=== PATIENT | male | born 1935 | race Native Hawaiian/Other Pacific Islander ===

== ENCOUNTER 2017-03-07 06:53 | Observation (INO) | payer MEDICARE, OTHER ==
[2017-03-07 07:18] LABS: CHLORIDE 93 mmol/L (98-107); SODIUM 128 mmol/L (132-148)
[2017-03-07 07:20] LABS: GFR AFRICAN-AMERICAN > 60
[2017-03-07 07:21] LABS: ALB/GLOB RATIO 1.3 (1.0-2.1); ALKALINE PHOSPHATASE 63 U/L (38-126); ALT/SGPT 21 U/L (21-72); AST/SGOT 65 U/L (17-59); BASO # 0.1 K/uL (0.0-0.2); BASO % 0.7 % (0.0-2.0); BILIRUBIN,TOTAL 1.3 mg/dL (0.2-1.3); BLOOD UREA NITROGEN 14 mg/dL (9-20); CALCIUM 8.3 mg/dl (8.6-10.4); CARBON DIOXIDE 26 mmol/L (22-30); EOS # 0.5 K/uL (0.0-0.7); EOS % 4.3 % (0.0-4.0); GLUCOSE,RANDOM 113 mg/dL (75-110); LYMPH % 9.4 % (20.0-40.0); MEAN CORPUSCULAR HEMOGLOBIN 24.5 pg (27.0-31.0); MEAN CORPUSCULAR HGB CONC 32.3 g/dL (33.0-37.0); MEAN PLATELET VOLUME 9.7 fL (7.2-11.7); PLATELET COUNT 148 K/uL (130-400); RED CELL DISTRIBUTION WIDTH 17.2 % (11.5-14.5); TOTAL PROTEIN 7.5 g/dL (6.3-8.3); WHITE BLOOD COUNT 10.9 K/uL (4.8-10.8)
[2017-03-07 07:23] LABS: MEAN CELL VOLUME 75.7 fL (80.0-94.0)
--- NOTE | 2017-03-07 07:36 | C.PDOC ---
History Of Present Illness Patient BIBA for AMS, slurred speech noticed this morning by family around 5: 45am. Patient had fallen on the floor ("slid to the floor"), last seen at normal baseline at approx 9pm. Patient has h/o CAD, HTN, DM. Time Seen by Provider: 03/07/17 07:10 Chief Complaint (Nursing): Weakness/Neurological Deficit History Per: EMS, Family History/Exam Limitations: clinical condition, language barrier Current Symptoms Are (Timing): Still Present Seizure Or Post-ictal Symptoms: None Severity: Moderate Past Medical History Reviewed: Historical Data, Nursing Documentation, Vital Signs Vital Signs: Last Vital Signs Temp 97.9 F 03/08/17 16:30 Pulse 65 03/08/17 16:30 Resp 20 03/08/17 16:30 BP 128/66 03/08/17 16:30 Pulse Ox 97 03/12/17 13:18 - Medical History PMH: CAD, HTN Surgical History: Coronary Stent Family History: States: Other Other Family History: NONCONTRIBUTORY - Social History Hx Alcohol Use: No Hx Substance Use: No Review Of Systems Review Of Systems: ROS cannot be obtained secondary to pt's inabilty to answer questions. Physical Exam - Physical Exam Appears: Non-toxic, Other (restless, awake & alert) Skin: Normal Color, Warm, Dry Head: Atraumatic, Normacephalic Eye(s): bilateral: EOMI, Other (pinpoint pupils B/L) Oral Mucosa: Moist Neck: Normal, Normal ROM Cardiovascular: Rhythm Irregular Respiratory: Normal Breath Sounds, No Rales, No Rhonchi, No Wheezing Gastrointestinal/Abdominal: Normal Exam, Bowel Sounds, Soft, No Tenderness Extremity: Normal ROM, No Pedal Edema, No Calf Tenderness Neurological/Psych: Normal Cranial Nerves, Normal Motor (5/5 motor strength all ext), Normal Sensation, Normal Reflexes, Dysarthria, Other (awake, alert, confused but able to follow simple commands, slurred speech as per family) ED Course And Treatment - Laboratory Results Result Diagrams: 03/07/17 07:05 03/07/17 08:06 ECG: Interpreted By Me, Viewed By Me (NSR 67 bpm, left axis deviation, no acute ST/T wave changes) ECG Interpretation: No Acute Changes O2 Sat by Pulse Oximetry: 97 (RA) Pulse Ox Interpretation: Normal - Radiology CXR: Interpreted by Me, Viewed By Me CXR Interpretation: Yes: No Acute Disease. No: Infiltrates - CT Scan/US ct head Other Rad Studies (CT/US): Read By Radiologist, Radiology Report Reviewed CT/US Interpretation: [facility]. [facility]. Preliminary Radiology Report with Addendum Call: [phone]. assistance Online chat: [email or web address] Name: ABAD MAGALLANES Age: 81Years M Date: . Requesting Physician: DANA French : 1935. [facility] Procedure Ordered As Accession Number of Images. CT HEAD WO CT HEAD W O CODE STROKE [id number]. Provided Clinical History: CODE STROKE. Page 1 of 2. Addendum created by Larry Mantilla MD on 03/07/2017 7:25 AM Eastern Time ([place] & [place]). The above was read and discussed at approximately 7:25 AM EDT on03/07/2017 with the attending. physician , Dr. Malcolm. Initial Report created on 03/07/2017 7:22 AM Eastern Time ([place] & [place]). EXAM: CT Head Without Intravenous Contrast. CLINICAL HISTORY: 81 years old, male; Signs and symptoms; Altered mental status/memory loss; Additional info: Code. stroke. TECHNIQUE: Axial computed tomography images of the head/brain without intravenous contrast. This CT exam. was performed using one or more of the following dose reduction techniques: automated exposure. control, adjustment of the mA and/or kV according to patient size, and/or use of iterative. reconstruction technique. Coronal and sagittal reformatted images were created and reviewed. EXAM DATE/TIME: 03/07/2017 6:54 AM. COMPARISON: No relevant prior studies available. FINDINGS: Brain: The ventricles are enlarged on the basis of mild diffuse cerebral volume loss. - Extensive. hypodensity is seen in the periventricular cerebral white matter. This change is nonspecific but is. most likely secondary to chronic ischemia within microvascular distributions. There are no other intra. or extra-axial masses, lesions or collections. The coffey white matter distinction is maintained. ABAD MAGALLANES | Preliminary Radiology Report. FIELD AGENT (QA) DISCREPANCY? If there is a discrepancy between the preliminary and final interpretation, please notify [facility] via [email or web address]. If you do not have access to our QA portal, call our QA team at [phone]. CONFIDENTIALITY STATEMENT. This report is intended only for the use of the referring physician, and only in accordance with law, If you received this in error, call [phone]. Page 2 of 2. throughout the brain. There is no radiographic evidence of intracranial hemorrhage. Summary: no. radiographic evidence of acute intracranial pathology. Ventricles: See above. Bones/joints: Unremarkable. No acute fracture. Soft tissues: Unremarkable. Sinuses: Mucosal thickening right greater than left maxillary sinus. Mastoid air cells: Unremarkable as visualized. No mastoid effusion. IMPRESSION: No acute findings. Thank you for allowing us to participate in the care of your patient. Dictated and Authenticated by: Larry Mantilla MD. 03/07/2017 7:22 AM Eastern Time ([place] & [place]) Progress Note: Code stroke called on ED arrival. Blood work, EKG, CT head ordered and reviewed. Patient given IV Ns bolus, VT aspirin at CT head (-) for bleed. Reevaluation Time: 08:00 Reassessment Condition: Unchanged (Patient's physical exam unchanged, but he is in no acute distress at this time.) - Physician Consult Information Physician Contacted: Randal Magallanes Outcome Of Conversation: Spoke with PMD, agrees with telemetry admission. Would like Dr. Domonique Mohan for neurology, states patient has seen him in the past. As per Dr. Magallanes he has no prior h/o CVA/TIA, but does has h/o carotid stenosis. Critical Care Time - Critical Care Note Total Time (in mins): 35 Documented critical care: time excludes all time spent performing seperately billable procedures. NIHSS Stroke Scale - Date/Time Evaluation Performed Date Performed: 03/07/17 Time Performed: 07:05 - How Severe is the Stoke Level of Consciousness: 0=Alert LOC to Questions: 0=Both comments correct LOC to commands: 0=Obeys both correctly Best Gaze: 0=Normal Visual: 0=No visual loss Facial: 0=Normal Motor Arm - Left: 0=No drift Motor Arm - Right: 0=No drift Motor Leg - Left: 0=No drift Motor Leg - Right: 0=No drift Limb Ataxia: 0=Absent Sensory: 0=Normal Best Language: 0=No aphasia Dysarthia: 1=Mild to moderate slurring Extinction & Inattention (Neglect): 0=Normal, no object Score: 1 Severity Of Stroke: 1-4= Minor Stroke rTPA Inclusion/Exclusion - Refusal of Treatment Patient Refused Treatment: No - Inclusion Criteria for Altepase Patient is 18 years or Older: Yes The Clinical Diagnosis of Ischemic Stroke That is Causing a Potentially Disabling Neurological Deficit: Yes Time of Onset is Well Established to be Less Than 270 Minute Before Treatment Would Begin: No Risk/Benefit Discussed With Patient/Family Member Present: No Disposition - Disposition Disposition: HOSPITALIZED Disposition Time: 08:15 Condition: STABLE - Clinical Impression Clinical Impression: Acute CVA (cerebrovascular accident), Dysarthria, Altered mental status Decision To Admit - Pt Status Changed To: Hospital Disposition Of: Inpatient - Admit Certification Admit to Inpatient:: After my assessment, the patient will require hospitalization for at least two midnights. This is because of the severity of symptoms shown, intensity of services needed, and/or the medical risk in this patient being treated as an outpatient. - InPatient: Physician Admission Certification: I certify that this patient requires 2 or more midnights of care for the following reason:: see notes - . Bed Request Type: Telemetry Admitting Physician: Randal Magallanes Patient Diagnosis: Acute CVA (cerebrovascular accident), Dysarthria, Altered mental status
[2017-03-07 08:13] LABS: BASOPHIL 1 % (0-2); EOSINOPHIL 5 % (0-4); NEUTROPHIL 71 % (50-75); TOTAL CELLS COUNTED 100
[2017-03-07 08:17] LABS: CHLORIDE 93 mmol/L (98-107)
[2017-03-07 08:18] LABS: SODIUM 129 mmol/L (132-148)
[2017-03-07 08:20] LABS: ALB/GLOB RATIO 1.2 (1.0-2.1); BILIRUBIN,TOTAL 0.7 mg/dL (0.2-1.3); BLOOD UREA NITROGEN 14 mg/dL (9-20); CARBON DIOXIDE 27 mmol/L (22-30); CHOLESTEROL 137 mg/dL (0-199); GFR AFRICAN-AMERICAN > 60; TOTAL PROTEIN 6.9 g/dL (6.3-8.3)
[2017-03-07 08:21] LABS: ALKALINE PHOSPHATASE 73 U/L (38-126); ALT/SGPT 21 U/L (21-72); AST/SGOT 25 U/L (17-59); CALCIUM 8.3 mg/dl (8.6-10.4); GLUCOSE,RANDOM 119 mg/dL (75-110)
--- NOTE | 2017-03-07 08:33 | CT ---
PROCEDURE: CT HEAD WITHOUT CONTRAST. HISTORY: CODE STROKE COMPARISON: None available. TECHNIQUE: Axial computed tomography images were obtained through the head/brain without intravenous contrast. Radiation dose: Total exam DLP = 885 mGy-cm. This CT exam was performed using one or more of the following dose reduction techniques: Automated exposure control, adjustment of the mA and/or kV according to patient size, and/or use of iterative reconstruction technique. FINDINGS: HEMORRHAGE: No intracranial hemorrhage. BRAIN: Scattered focal lucencies in the subcortical and periventricular white matter suggestive for chronic microvascular ischemic change. Atrophy. Extensive hypodensity seen in the periventricular cerebral white matter. This change is nonspecific but is most likely secondary to chronic ischemia within microvascular distributions. VENTRICLES: Enlarged likely secondary to mild diffuse cerebral volume loss. CALVARIUM: Unremarkable. PARANASAL SINUSES: Mucosal thickening of the bilateral maxillary sinuses ; right greater than left. MASTOID AIR CELLS: Unremarkable as visualized. No inflammatory changes. OTHER FINDINGS: None. IMPRESSION: No acute intracranial abnormality. Atrophy. Prominent ventricles likely secondary to diffuse atrophy. Extensive hypodensity in the periventricular cerebral white matter, nonspecific, but possibly secondary to chronic ischemia within microvascular distributions. If focal neurologic deficit persists, consider MRI. Additional findings as above. These findings were preliminarily reported at 7:22 a.m. on 03/07/[address] Larry Mantilla from [facility] [employer].
[2017-03-07] MEDS ORDERED: Sodium Chloride 0.9% 1,000 ML IV ONE (09:21)
--- NOTE | 2017-03-07 10:16 | CON ---
DATE: 03/07/2017 REASON FOR CONSULTATION: Possible stroke. HISTORY OF PRESENT ILLNESS: The patient is a 81-year-old male brought by the family after noticed to have slurring of speech and change in mental status. The patient woke up this morning and as he was trying to get out of bed, he kind of stumbled and fell. He did not hit his head. Since that time, he has noticed to have slurring of speech and was very confused and restless. History is from the [facility] and the patient. REVIEW OF SYSTEMS: Denies any headache, dizziness, chest pain, shortness of breath, abdominal pain, constipation, diarrhea. Denies any hallucinations or rashes. PAST MEDICAL HISTORY: Includes hypertension, diabetes mellitus, coronary artery disease. MEDICATIONS: At home included Plavix, valsartan/hydrochlorothiazide, metoprolol, Aricept, atorvastat in and metformin. ALLERGIES: No known drug allergies. SOCIAL HISTORY: Denies smoking, use of alcohol or illicit drugs. FAMILY HISTORY: Reviewed and noncontributory to the case. PHYSICAL EXAMINATION: GENERAL: The patient is an elderly pleasant male lying on the bed, in no acute distress. VITAL SIGNS: Her blood pressure is 132/55, heart rate is 87 per minute, breathing at a rate of 16 pe r minute, temperature is 98 degrees Fahrenheit. HEENT: Head is normocephalic, atraumatic. NECK: Supple. There are no carotid bruits. LUNGS: Clear. CARDIOVASCULAR: S1, S2 audible. No murmurs. ABDOMEN: Soft, nontender, bowel sounds present. NEUROLOGIC EXAMINATION: MENTAL STATUS: The patient is awake, but tends to keep eyes closed. He follows simple commands. Hi s naming is good. He does have slurring of speech. CRANIAL NERVES: Pupils are 3 mm bilaterally reactive to light. Visual enriquez are full to threat. E xtraocular movements are intact. There is decreased nasolabial fold on the right side. MOTOR: Tone is normal. There is mild right-sided pronator drift. Other than that, power appears to be 4-5/5 all over. REFLEXES: 1+ and symmetrical. Plantars downgoing bilaterally. CEREBELLAR: [id number] shows no dysmetria. LABORATORY DATA: Labs reviewed, shows WBC of 10.9, hemoglobin 10.7, hematocrit of 33.0 and platelets of 148. Sodium is 129, potassium 4.0, chloride 93, carbon dioxide content 27, BUN of 14, creatinine of 1.1 and glucose of 113. He had a CT scan of the head done, which shows atrophy, no acute intracr anial abnormality. Extensive hypodensity in the periventricular cerebral white matter, nonspecific, but possibly secondary to chronic ischemia within microvascular distribution. IMPRESSION: Altered mental status with slurring of speech and mild right-sided weakness. This is mo st likely secondary to cerebrovascular accident. RECOMMENDATIONS: 1. The patient to have MRI of the brain without contrast. 2. The patient to have a carotid Doppler study. 3. The patient to have an echocardiogram done if not recently done. 4. The patient to be continued on Plavix once he passes swallowing eval. 5. The patient also to be started on statin once cleared by speech therapy. 6. Please continue supportive care and other treatment. Thank you for the opportunity to participate in the care of this patient. Michael Mohan MD cc: [id number] TT: 03/07/2017 10:16:24 Confirmation # [id number] Dictation # [id number]
[2017-03-07 12:01] LABS: RBC URINE 98 /hpf (0-3); URINE BILIRUBIN NEGATIVE (NEGATIVE); URINE BLOOD 3+ (NEGATIVE); URINE COLOR Straw (YELLOW); URINE GLUCOSE (UA) NORMAL (Normal); URINE KETONE NEGATIVE (NEGATIVE); URINE LEUKOCYTE ESTERASE NEG Leu/uL (Negative); URINE PROTEIN NEGATIVE (NEGATIVE); URINE UROBILINOGEN NORMAL mg/dL (0.2-1.0); WBC URINE 6 /hpf (0-5)
--- NOTE | 2017-03-07 12:21 | RAD ---
HISTORY: code stroke COMPARISON: No prior. FINDINGS: LUNGS: Mild venous congestion. Elevated right hemidiaphragm. PLEURA: No significant pleural effusion identified, no pneumothorax apparent. CARDIOVASCULAR: Tortuous aorta. Calcification at the aortic knob. OSSEOUS STRUCTURES: Deformity of the distal left clavicle with callus formation. VISUALIZED UPPER ABDOMEN: Normal. OTHER FINDINGS: None. IMPRESSION: Mild venous congestion. Elevated right hemidiaphragm.
--- NOTE | 2017-03-07 13:03 | MRI ---
PROCEDURE: MRI BRAIN WITHOUT CONTRAST HISTORY: cva COMPARISON: Comparison made with CT scan and MRI of the brain dated 03/07/2017 and 05/13/2015 respectively. . TECHNIQUE: Multiplanar, multisequence MR images of the brain were obtained without intravenous contrast enhancement. Note that the examination is limited by motion artifact. FINDINGS: HEMORRHAGE: No acute parenchymal, subarachnoid or extra-axial hemorrhage. DWI: No evidence of an acute or early subacute infarction. BRAIN PARENCHYMA: Minor chronic periventricular white matter ischemic changes with tiny on chronic lacunar-type infarct in the left posterior parietal subcortical white matter. Moderate CT generalized volume loss. VENTRICLES: No evidence of obstructive hydrocephalus CRANIUM: Calvarium appears grossly intact so far as can be seen ORBITS: Patient is again noted be status post bilateral cataract surgery. . PARANASAL SINUSES/MASTOIDS: Mild mucosal thickening seen within the maxillary ethmoid frontal and sphenoid sinuses. VASCULAR SYSTEM: Visualized major vascular flow voids at skull base are patent. OTHER FINDINGS: None IMPRESSION: Limited motion degraded study. No evidence of acute intracranial hemorrhage or infarct. Mild chronic white matter ischemic changes with tiny chronic lacunar type infarct left posterior parietal subcortical white matter. Moderate generalized volume loss. Mild mucoperiosteal inflammatory changes within all the paranasal sinuses.
--- NOTE | 2017-03-07 13:19 | HP ---
HISTORY OF PRESENT ILLNESS: A 81-year-old gentleman with a history of hypertension, diabetes, carotid disease, previous history of TIAs and coronary artery disease, was brought in with slurred s peech, periods of confusion and weakness and fell on the floor twice. The speech has been slurred on and off since last night, 9:00 p.m. Came to the Emergency Room and subsequently admitted. His rout ine labs were acceptable. CAT scan was unremarkable. The patient has already been seen by neurologi , Dr. Leo Mohan. MEDICATIONS: At home, patient is maintained on Lipitor 10 mg. Diovan HCT 80/12.5 one a day, which w as increased to 160, but patient has not done that for past 1 month, currently he takes 80/12.5. Asp irin 81 mg, Plavix 75 mg, Aricept 10 mg, Flomax 0.4 mg, Toprol 50 mg twice a day and metformin 500 mg twice a day. He was in usual status of health up until last night when he had ____ episode. PERSONAL HISTORY: Does not smoke, does not drink. ALLERGIES: NSAIDS AND SALICYLATES, WHICH HE HAS GASTRITIS. OTHERWISE, NO REAL ALLERGIES. FAMILY HISTORY: Negative for premature coronary artery disease or [place]. REVIEW OF SYSTEMS: GENERAL: Poor exercise tolerance. Mild fatigue. EYES: No visual disturbance. EARS: Hearing loss is noted. NECK: No swollen glands. RESPIRATORY: Negative for cough or hemoptysis. CARDIAC: Occasional exertional chest pain, chronic stable angina. No orthopnea, no PND, no palpitat ions. GASTROINTESTINAL: Negative for hematemesis or melena. GENITOURINARY: Frequency is noted and hesitancy, but no hematuria. MUSCULOSKELETAL: Multiple joint pains, more in the knees. PERIPHERAL VASCULAR: Negative for claudication. NEUROLOGIC: History of slurred speech in the past. Unsteady gait. He has been admitted in the past for similar complaints and was admitted to [facility] for the same in March of last year. PAST MEDICAL HISTORY: History of CAD, had a PTCA done many years ago. Echo has normal LV systolic f unction. Admitted in the past with TIAs. PHYSICAL EXAMINATION: GENERAL: Shows an elderly gentleman, in no distress. VITAL SIGNS: He is 5 feet 3 inches and weighs 127 pounds. His blood pressure is 134/70. Heart rate of 62 and regular, sinus on the monitor. Respiratory rate of 14, afebrile. O2 sat is 98 on room ai r. HEAD: Normocephalic. EYES: No pallor, no icterus. NECK: Right carotid bruit is noted. MOUTH: Loss of a few teeth. PULMONARY: Clear to auscultation bilaterally. HEART: PMI is normal. S1, S2 is normal. Soft S4 gallop. Grade II/ systolic ejection murmur in a ortic area. EXTREMITIES: No evidence of edema. Distal pulses are intact. ABDOMEN: Soft, nontender. MUSCULOSKELETAL: All joints appear normal. NEUROLOGIC: Awake, alert, oriented x 3. Speech is normal. PSYCHIATRIC: No evidence of depression. EKG, sinus rhythm, within normal limits. CT was unremarkable. ASSESSMENT: A 81-year-old gentleman with history of diabetes, hypertension, diffuse atherosclerosis is present, and recurrent transient ischemic attacks. PLAN: Continue with the aspirin, Plavix and will follow with neurology recommendation. RECOMMENDATIONS: MRI has been done, carotid Doppler has been done, will be reviewed. Care of plan w as explained to the patient's family who was at the bedside. Randal Matos MD cc: [id number] TT: 03/07/2017 13:19:17 sn
--- NOTE | 2017-03-07 16:14 | VASCLAB ---
PROCEDURE: HISTORY: cva COMPARISON: None available. TECHNIQUE: Grayscale and duplex Doppler evaluation of the cervical carotid and vertebral arteries were performed. The common carotid, carotid bifurcations and cervical Internal Carotid Artery (ICA) and proximal External Carotid Artery (ECA) were evaluated. The vertebral arteries were evaluated for gross patency and flow direction. Report prepared by Huang Byrd, BS, RVT FINDINGS: RIGHT CAROTID ARTERIES: 1. Common Carotid Artery: No significant focal plaque formation of the right common carotid artery. Maximum Peak Systolic velocity: 144 cm/sec: End-diastolic velocity 28 cm/sec. 2. Carotid Bifurcation: Calcific plaque formation. Maximum Peak Systolic velocity: 101 cm/sec: End-diastolic velocity 16 cm/sec. 3. Internal Carotid Artery: Moderate plaque formation of the right proximal ICA which results in hemodynamically significant stenosis. Plaque description: 3.1. Proximal Segment: Peak systolic velocity 138 cm/sec: End-diastolic velocity 19 cm/sec - % stenosis 0-15% 3.2. Middle Segment: Peak systolic velocity 68 cm/sec: End-diastolic velocity 15 cm/sec - % stenosis 0-15% 3.3. Distal Segment: Peak systolic velocity 91 cm/sec: End-diastolic velocity 18 cm/sec - % stenosis 0-15% 4. External Carotid Artery: No significant focal plaque formation. Peak systolic velocity 256 cm/sec 5. ICA/CCA Ratio: 1.0 LEFT CAROTID ARTERIES: 1. Common Carotid Artery: No significant focal plaque formation of the left common carotid artery. Maximum Peak Systolic velocity: 91 cm/sec: End-diastolic velocity 17 cm/sec. 2. Carotid Bifurcation: Calcific plaque formation. Maximum Peak Systolic velocity: 114 cm/sec: End-diastolic velocity 27 cm/sec. 3. Internal Carotid Artery: Severe plaque formation of the left proximal ICA which dose not results in a hemodynamically significant stenosis. Plaque description: 3.1. Proximal Segment: Peak systolic velocity 127 cm/sec: End-diastolic velocity 19 cm/sec - % stenosis 0-15% 3.2. Middle Segment: Peak systolic velocity 117 cm/sec: End-diastolic velocity 21 cm/sec - % stenosis 0-15% 3.3. Distal Segment: Peak systolic velocity 79 cm/sec: End-diastolic velocity 17 cm/sec - % stenosis 0-15% 4. External Carotid Artery: No significant focal plaque formation. Peak systolic velocity 425 cm/sec 5. ICA/CCA Ratio: 1.4 VERTEBRAL ARTERIES: 1. Right Vertebral Artery: The right vertebral artery flow direction is antegrade. 2. Left Vertebral Artery: The left vertebral artery flow direction is antegrade. OTHER FINDINGS: 1. Right Brachial Blood pressure: 140 mmHg. 2. Left Brachial Blood pressure: 142 mmHg. IMPRESSION: RIGHT: Duplex scan does not suggest hemodynamically significant stenosis of the right extracranial carotid arteries. LEFT: Duplex scan does not suggest hemodynamically significant stenosis of the left extracranial carotid arteries.
[2017-03-07] MEDS: (Novolog) Insulin Aspart, Recombinant 100 u/ml 10 ml vial SC SCH ×2 (17:28→22:22)
[2017-03-08] MEDS: (Novolog) Insulin Aspart, Recombinant 100 u/ml 10 ml vial SC SCH ×4 (08:13→21:19)
[2017-03-08] MEDS ORDERED: Enoxaparin 30 mg Syringe SC SCH (10:00)
--- NOTE | 2017-03-08 12:27 | PN ---
DATE: 03/08/2017 SUBJECTIVE: The patient is sitting on chair in no acute distress. Denies having any headache or diz ziness, wants to go home. PHYSICAL EXAMINATION: VITAL SIGNS: His blood pressure is 148/70, heart rate is 71 per minute, breathing at a rate of 16 pe r minute, temperature is 98.2 degrees Fahrenheit. HEENT: Normocephalic, atraumatic. NECK: Supple. There are no carotid bruits. LUNGS: Clear. CARDIOVASCULAR: S1, S2 audible. No murmurs. ABDOMEN: Soft and nontender. Bowel sounds present. NEUROLOGIC EXAMINATION: MENTAL STATUS: The patient is awake, alert. He knows he is in the hospital. He knows his name. He does not know the month. He follows simple commands. CRANIAL NERVE: Pupils are 3 mm, bilaterally reactive to light. Visual enriquez are full. Extraocular movements are intact. There is slight decreased nasolabial fold on the right side. Palate is upgoi ng bilaterally and tongue is midline. MOTOR: Tone is normal. Power is 5/5 bilaterally in all extremities. Reflexes 1+ and symmetrical. Gait is narrow based. LABORATORIES: Reviewed, show sodium of 129, potassium 4.0, chloride of 93, carbon dioxide 27, BUN of 14, creatinine 1.1, and glucose of 119. He had MRI of the brain done which shows no acute intracran ial pathology. Mild chronic white matter ischemic changes with tiny chronic lacunar type infarct lef t posterior parietal subcortical white matter. Generalized volume loss. He also had a carotid ultra sound done which shows no significant stenosis. IMPRESSION: 1. Status post altered mental with slurring of speech. This may have been secondary to a transient ischemic attack. 2. History of memory loss with mild dementia. RECOMMENDATIONS: 1. The patient to be continued on Plavix. 2. The patient also to be continued on statin. 3. The patient has no focal neurologic deficit present. 4. The patient to be continued on Aricept. 5. The patient has mild hyponatremia which needs to be corrected. 6. Please continue other treatment and supportive care. Thank you for the opportunity to participate in the care of this patient. Michael Mohan MD cc: [id number] TT: 03/08/2017 12:26:00 Confirmation # [id number] Dictation # [id number]
--- NOTE | 2017-03-08 12:32 | CP.PCM.PN ---
Subjective - Date & Time of Evaluation Date of Evaluation: 03/08/17 Time of Evaluation: 12:29 - Subjective Subjective: speech is better.less confused.neuro seen. Objective - Vital Signs/Intake and Output Vital Signs (last 24 hours): Temp Pulse Resp BP Pulse Ox 98.2 F 71 18 148/70 97 03/08/17 07:10 03/08/17 07:10 03/08/17 07:10 03/08/17 07:10 03/08/17 07:10 Intake and Output: 03/08/17 03/08/17 06:59 18:59 Intake Total 100 Output Total 350 Balance -250 - Medications Medications: Current Medications Clopidogrel Bisulfate (Plavix) 75 mg PO DAILY [facility] Last Admin: 03/08/17 11:05 Dose: 75 mg Donepezil HCl (Aricept) 10 mg PO DAILY [facility] Last Admin: 03/08/17 11:05 Dose: 10 mg Enoxaparin Sodium (Lovenox) 30 mg SC DAILY [facility] Last Admin: 03/08/17 11:05 Dose: 30 mg Famotidine (Pepcid) 20 mg PO DAILY [facility] Last Admin: 03/08/17 11:05 Dose: 20 mg Hydrochlorothiazide (Microzide) 12.5 mg PO DAILY [facility] Last Admin: 03/08/17 11:05 Dose: 12.5 mg Insulin Aspart (Novolog) 0 unit SC [facility] PRN Reason: Protocol Last Admin: 03/08/17 08:13 Dose: Not Given Losartan Potassium (Cozaar) 50 mg PO DAILY [facility] Last Admin: 03/08/17 11:05 Dose: 50 mg Metformin HCl (Glucophage Xr) 500 mg PO DAILY [facility] Last Admin: 03/08/17 11:31 Dose: 500 mg Metoprolol Tartrate (Lopressor) 50 mg PO BID [facility] Last Admin: 03/08/17 11:05 Dose: 50 mg Rosuvastatin Calcium (Crestor) 5 mg PO HS [facility] Last Admin: 03/07/17 22:22 Dose: 5 mg - Labs Labs: PT 10.8 SECONDS (9.7-12.2) 03/07/17 07:05 INR 1.0 03/07/17 07:05 APTT 33 SECONDS (21-34) 03/07/17 07:05 - Constitutional Appears: No Acute Distress - Eye Exam Eye Exam: Normal appearance - ENT Exam ENT Exam: Mucous Membranes Moist - Neck Exam Neck Exam: Normal Inspection - Respiratory Exam Respiratory Exam: Clear to Ausculation Bilateral - Cardiovascular Exam Cardiovascular Exam: REGULAR RHYTHM, Murmur - GI/Abdominal Exam GI & Abdominal Exam: Soft - Extremities Exam Extremities Exam: absent: Pedal Edema - Neurological Exam Neurological Exam: Alert, Oriented x3 Assessment and Plan - Assessment and Plan (Free Text) Assessment: recurrent tias.cpm.phy & speech rx.hopefully d/c in am.
[2017-03-08 16:32] VITALS: BP 128/66; PULSE 65; RESP 20; TEMP 97.9
[2017-03-08] MEDS ORDERED: Benzocaine/Menthol (Cepacol) Lozenge MT PRN (18:37)
--- NOTE | 2017-03-09 15:05 | DS ---
A 81-year-old gentleman with a history of hypertension, diabetes, coronary artery disease, was randy t in with recurrent TIAs. MRI, carotid Doppler duplex all were noted, but no significant disease. At herosclerosis was noted all throughout. The patient is stable. Will be discharged to be followed up as an outpatient. Prescription for the rolling walker, physical therapy at home and shower chair baker s been given. The patient will continue all the medications at home, which includes aspirin 81 mg 1 a day, Plavix 75 mg 1 a day, Diovan 160 mg once a day. Diovan 80/12.5 has been discontinued. Metform in will be continued at 400 mg, Crestor, beta florence, metoprolol. He will return to see me in about 1 weeks' time. FINAL DIAGNOSES: Recurrent transient ischemic attacks, diabetes, hypertension, diffuse atheroscleros is. Randal Matos MD cc: [id number] TT: 03/09/2017 13:15:35 jere
[2017-03-12 13:16] VITALS: O2SAT 97
--- NOTE | 2017-03-12 18:17 | CARD ---
APPROVED REPORT EKG Measurement Heart [id number] <Conclusion> Normal sinus rhythm with sinus arrhythmia Left axis deviation Abnormal ECG
== END 2017-03-09 13:07 | disposition home or self-care (01) ==
LOC: C.ER 06:53 → INTOOBSV 08:15 → C.9E 08:15 → C.5T 09:30 → C.9E 10:41 → C.6T 13:02
PROVIDERS: ADMIT Internal Medicine Cardiovascular Disease; ATTEND Internal Medicine Cardiovascular Disease
DX: G45.9 Transient cerebral ischemic attack, unspecified (principal); F03.90 Unspecified dementia, unspecified severity, without behavioral disturbance, psychotic disturbance, mood disturbance, and anxiety; E11.9 Type 2 diabetes mellitus without complications; I10 Essential (primary) hypertension; I25.10 Atherosclerotic heart disease of native coronary artery without angina pectoris
CPT/HCPCS: 70450; 70551; 71010; 80053; 80061; 81001; 82948; 83036; 84484; 85025; 85610; 85730; 86850; 86900; 87086; 92526; 92610; 93005; 93880; 96360; 97162; 97530; 99285; G0378; G0480; G8978; G8979; G8996; G8997; J1650; J7040